=== PATIENT | female | born 1960 | race American Indian/Alaskan Native ===

== ENCOUNTER 2021-11-22 17:40 | Emergency (ER) | payer SELFPAY ==
--- NOTE | 2021-11-22 22:44 | Emergency Department Report ---
ED General Adult HPI - General Chief complaint: Skin/Abscess/Foreign Body Stated complaint: BUG BITE/SWELLING Time Seen by Provider: 11/22/21 19:56 Source: patient, EMS Mode of arrival: Stretcher Limitations: No Limitations - History of Present Illness Initial comments: This 1-year-old female with a significant elevated BMI presents emergency department complaining of having some issues with insect bites and painful joints going on for the last 3 to 4 days. She went to get her car fixed this past Tuesday and while doing so she endoderm and walked up a hill to [employer] to get lunch. Upon returning she went home and noticed a bunch of bite m arks over her body which were pruritic in nature and progressive worsening pain to her knees and able her to stand and ambulate which she normally would. She reports no fever, chills, sweats. No chest pain palpitation, no nausea vomiting. No hemoptysis no hematemesis hematochezia. No known contact with any mite infestations Quality: dull Consistency: constant Improves with: none Worsens with: none - Related Data Previous Rx's Medication Instructions Recorded Last Taken Type Fluticasone [Flonase] 2 spray NS QDAY #1 bottle 01/21/16 06/04/16 Rx Losartan/Hydrochlorothiazide 1 tab PO QDAY #30 tablet 01/21/16 06/04/16 Rx [Hyzaar 100-25 TAB] Ketorolac [Toradol] 10 mg PO Q6H PRN #14 11/23/21 Unknown Rx Mometasone Furoate [Elocon] 1 applicatio TP QDAY #1 11/23/21 Unknown Rx Permethrin 5% [Acticin 5% CREAM] 1 applicatio TP ONCE #1 tube 11/23/21 Unknown Rx Allergies Allergy/AdvReac Type Severity Reaction Status Date / Time No Known Allergies Allergy Verified 11/22/21 17:43 ED Review of Systems ROS: Stated complaint: BUG BITE/SWELLING Other details as noted in HPI Comment: All other systems reviewed and negative ED Past Medical Hx - Past Medical History Hx Hypertension: Yes Additional medical history: Sinusitis - Surgical History Additional Surgical History: thigh abscess, uterine band - Social History Smoking Status: Former Smoker Substance Use Type: Prescribed - Medications Home Medications: Home Medications Medication Instructions Recorded Confirmed Last Taken Type Fluticasone [Flonase] 2 spray NS QDAY #1 bottle 01/21/16 06/04/16 Rx Losartan/Hydrochlorothiazide 1 tab PO QDAY #30 tablet 01/21/16 06/04/16 Rx [Hyzaar 100-25 TAB] Ketorolac [Toradol] 10 mg PO Q6H PRN #14 11/23/21 Unknown Rx Mometasone Furoate [Elocon] 1 applicatio TP QDAY #1 11/23/21 Unknown Rx Permethrin 5% [Acticin 5% CREAM] 1 applicatio TP ONCE #1 tube 11/23/21 Unknown Rx ED Physical Exam - General Limitations: No Limitations General appearance: alert, in no apparent distress - Head Head exam: Present: atraumatic, normocephalic - Eye Eye exam: Present: normal appearance, PERRL, EOMI Pupils: Present: normal accommodation - ENT ENT exam: Present: mucous membranes moist - Neck Neck exam: Present: normal inspection, full ROM - Respiratory Respiratory exam: Present: normal lung sounds bilaterally. Absent: respiratory distress - Cardiovascular Cardiovascular Exam: Present: regular rate, normal rhythm. Absent: systolic murmur, diastolic murmur, rubs, gallop - GI/Abdominal GI/Abdominal exam: Present: soft, normal bowel sounds - Extremities Exam Extremities exam: Present: normal inspection - Back Exam Back exam: Present: normal inspection - Neurological Exam Neurological exam: Present: alert, oriented X3 - Psychiatric Psychiatric exam: Present: normal affect, normal mood - Skin Skin exam: Present: warm, dry, intact, normal color. Absent: rash ED Course Vital Signs 11/22/21 11/23/21 17:41 04:34 Temperature 101.1 F H Pulse Rate 90 87 Respiratory 16 12 Rate Blood Pressure 139/81 136/82 [Left] O2 Sat by Pulse 97 100 Oximetry ED Medical Decision Making - Lab Data Result diagrams: 11/22/21 22:43 11/22/21 22:43 Critical care attestation.: If time is entered above; I have spent that time in minutes in the direct care of this critically ill patient, excluding procedure time. ED Disposition Clinical Impression: Rash, Arthralgia Disposition: 01 HOME / SELF CARE / HOMELESS Is pt being admited?: No Does the pt Need Aspirin: No Condition: Stable Instructions: Rash, Adult, Musculoskeletal Pain Prescriptions: Permethrin 5% [Acticin 5% CREAM] 1 applicatio TP ONCE #1 tube Mometasone Furoate [Elocon] 1 applicatio TP QDAY #1 Ketorolac [Toradol] 10 mg PO Q6H PRN #14 PRN Reason: Pain Referrals: [facility] [Provider Group] - 3-5 Days
[2021-11-22 23:46] LABS: Hematocrit 40.1 % (30.3-42.9); Hemoglobin 13.4 gm/dl (10.1-14.3); Mean Corpuscular HGB Conc 34 % (30-34); Mean Corpuscular Volume 86 fl (79-97); Platelet Count 229 K/mm3 (140-440); Red Blood Count 4.67 M/mm3 (3.65-5.03); Red Cell Distribution Width 15.7 % (13.2-15.2)
[2021-11-22 23:58] LABS: Alanine Aminotransferase 35 units/L (7-56); Albumin 3.9 g/dL (3.9-5); BUN/Creatinine Ratio 14; Blood Urea Nitrogen 13 mg/dL (7-17); Calcium 8.7 mg/dL (8.4-10.2); Hemolysis Index 0
[2021-11-23 02:10] LABS: Erythrocyte Sedimentation Rate 60 mm/Hr (0-20)
[2021-11-23 04:35] VITALS: BP 136/82
== END 2021-11-23 05:12 | disposition home or self-care (01) ==
LOC: ED 17:40
DX: R21 Rash and other nonspecific skin eruption (principal); M25.50 Pain in unspecified joint; I10 Essential (primary) hypertension; Z87.891 Personal history of nicotine dependence; Z79.899 Other long term (current) drug therapy
CPT/HCPCS: 36415; 80053; 82140; 85027; 85652; 87040; 99283